=== PATIENT | female | born 1990 | race Two or more races ===

== ENCOUNTER 2022-11-06 12:54 | Inpatient (IN) | payer OTHER ==
[~2022-11-06] VITALS: Ht 165.1 cm; Wt 94.3 kg
[2022-11-06] MEDS ORDERED: MAG HYDROX/AL HYDROX/SIMETH 30 ML UDC PO PRN (15:00)
[2022-11-06] MEDS ORDERED: IBUPROFEN 200 MG TABLET PO PRN (15:00)
[2022-11-06] MEDS ORDERED: MAGNESIUM HYDROXIDE 30 ML UDC PO PRN (15:00)
[2022-11-06] MEDS ORDERED: ACETAMINOPHEN ES 500 MG TABLET PO PRN (15:00)
[2022-11-06] MEDS ORDERED: ZOLPIDEM TARTRATE 10 MG TABLET PO PRN (15:00)
[2022-11-06 16:01] VITALS: BP 130/79; TEMP 98.2; O2SAT 99
[2022-11-06] MEDS ORDERED: SEROQUEL 100 MG PO ONE (22:00)
[2022-11-07 07:00] VITALS: BP 120/95; TEMP 98; O2SAT 99
[2022-11-07] MEDS ORDERED: QUET200T PO (08:19)
[2022-11-07 16:06] VITALS: BP 119/70; TEMP 97.9; O2SAT 99
[2022-11-07 20:00] VITALS: BP 150/86; TEMP 99.1; O2SAT 100
[2022-11-07] MEDS ORDERED: SEROQUEL 50 MG PO ONE (22:00)
[2022-11-08 07:30] VITALS: BP 130/81; TEMP 98.2; O2SAT 100
[2022-11-08 20:00] VITALS: BP 147/95; TEMP 97.8; O2SAT 100
[2022-11-09] MEDS: LORAZEPAM 1 MG TABLET FOR AGITATION PO PRN ×2 (01:02→22:52)
[2022-11-09 16:00] VITALS: BP 139/93; TEMP 99.3; O2SAT 99
[2022-11-10 08:00] VITALS: BP 147/89; TEMP 98.4; O2SAT 99
[2022-11-10 10:00] VITALS: BP 131/72; TEMP 99; O2SAT 93
[2022-11-10] MEDS: LORAZEPAM 1 MG TABLET FOR AGITATION PO PRN (22:35)
[2022-11-11 08:00] VITALS: BP 136/96; TEMP 98.3; O2SAT 99
[2022-11-11 16:00] VITALS: BP_SYST 136; BP_SYST 137; BP_DIAS 88; BP_DIAS 95; TEMP 98.1; TEMP 98.6; O2SAT 96; O2SAT 99
[2022-11-11 20:00] VITALS: BP 145/85; TEMP 98.6; O2SAT 100
[2022-11-11] MEDS: LORAZEPAM 1 MG TABLET FOR AGITATION PO PRN (23:45)
[2022-11-12 20:00] VITALS: BP 132/91; TEMP 98.2; O2SAT 99
[2022-11-12] MEDS: LORAZEPAM 1 MG TABLET FOR AGITATION PO PRN (23:00)
[2022-11-13 16:00] VITALS: BP 135/77; TEMP 98.1; O2SAT 100
[2022-11-13 20:00] VITALS: BP 129/82; TEMP 98; O2SAT 100
[2022-11-14 23:00] VITALS: BP 150/100; TEMP 98.2; O2SAT 100
[2022-11-15] MEDS ORDERED: LORAZEPAM 1 MG TABLET FOR AGITATION PO PRN (13:00)
[2022-11-16] MEDS: INVEST MED CVL-231-2002 PO SCH (10:00)
[2022-11-16 20:00] VITALS: BP 132/78; TEMP 98.6; O2SAT 98
[2022-11-17] MEDS: INVEST MED CVL-231-2002 PO SCH (10:04)
[2022-11-18 00:30] VITALS: BP 134/95; TEMP 98.8; O2SAT 98
[2022-11-18 00:39] VITALS: BP 134/95; TEMP 98.8; O2SAT 98
[2022-11-18] MEDS: INVEST MED CVL-231-2002 PO SCH (10:05)
[2022-11-18 16:00] VITALS: BP 144/101; TEMP 98.8; O2SAT 97
[2022-11-18] MEDS: ZOLPIDEM TARTRATE 10 MG TABLET PO PRN (23:22)
[2022-11-19 08:00] VITALS: BP 121/81; TEMP 98; O2SAT 99
[2022-11-19] MEDS: INVEST MED CVL-231-2002 PO SCH ×2 (09:59→10:46)
[2022-11-19] MEDS: ONDANSETRON 4 MG TAB.RAPDIS PO PRN (18:09)
[2022-11-19 20:00] VITALS: BP 136/85; TEMP 98.4; O2SAT 100
[2022-11-20] MEDS: INVEST MED CVL-231-2002 PO SCH (12:51)
[2022-11-20 20:00] VITALS: BP 135/94; TEMP 97.2; O2SAT 95
[2022-11-20 20:20] VITALS: BP 135/94; TEMP 97.2; O2SAT 92
[2022-11-20] MEDS: ZOLPIDEM TARTRATE 10 MG TABLET PO PRN (20:32)
[2022-11-21 08:00] VITALS: BP 118/73; TEMP 97.9; O2SAT 96
[2022-11-21] MEDS: INVEST MED CVL-231-2002 PO SCH (09:04)
[2022-11-21] MEDS: ONDANSETRON 4 MG TAB.RAPDIS PO PRN (09:11)
[2022-11-21 20:00] VITALS: BP 147/99; TEMP 98.2; O2SAT 98
[2022-11-22] MEDS: INVEST MED CVL-231-2002 PO SCH ×2 (10:39→13:02)
[2022-11-22] MEDS ORDERED: LORAZEPAM 1 MG TABLET FOR AGITATION PO PRN (13:00)
[2022-11-23] MEDS: INVEST MED CVL-231-2002 PO SCH (11:22)
[2022-11-23 23:00] VITALS: BP 146/90; TEMP 98.6; O2SAT 95
[2022-11-24] MEDS: ZOLPIDEM TARTRATE 10 MG TABLET PO PRN (01:30)
[2022-11-24] MEDS: INVEST MED CVL-231-2002 PO SCH (10:32)
[2022-11-25 09:12] VITALS: BP 128/74; TEMP 98; O2SAT 99
[2022-11-25] MEDS: INVEST MED CVL-231-2002 PO SCH (09:59)
[2022-11-25 22:56] VITALS: BP 130/85; TEMP 97.8; O2SAT 97
[2022-11-26] MEDS: INVEST MED CVL-231-2002 PO SCH (09:58)
[2022-11-27 07:30] VITALS: BP 127/64; TEMP 98.6; O2SAT 96
[2022-11-27] MEDS: INVEST MED CVL-231-2002 PO SCH (10:24)
[2022-11-27 16:00] VITALS: BP 143/95; TEMP 98.8; O2SAT 100
[2022-11-27 19:00] VITALS: BP 117/65; TEMP 97; O2SAT 92
[2022-11-28] MEDS: ZOLPIDEM TARTRATE 10 MG TABLET PO PRN (01:53)
[2022-11-28 08:20] VITALS: BP 137/79; TEMP 98.2; O2SAT 99
[2022-11-28] MEDS: INVEST MED CVL-231-2002 PO SCH (10:28)
[2022-11-28 20:00] VITALS: BP 137/87; TEMP 98.6; O2SAT 96
[2022-11-29] MEDS: INVEST MED CVL-231-2002 PO SCH (09:31)
[2022-11-29] MEDS ORDERED: LORAZEPAM 1 MG TABLET FOR AGITATION PO PRN (13:00)
[2022-11-29 20:00] VITALS: BP 120/73; TEMP 99.1; O2SAT 97
[2022-11-29] MEDS: ZOLPIDEM TARTRATE 10 MG TABLET PO PRN (21:12)
[2022-11-30] MEDS: INVEST MED CVL-231-2002 PO SCH (10:02)
[2022-11-30 16:00] VITALS: BP 132/83; TEMP 98.8; O2SAT 99
[2022-12-01] MEDS: INVEST MED CVL-231-2002 PO SCH (10:59)
[2022-12-01 22:30] VITALS: BP 130/74; TEMP 98; O2SAT 98
[2022-12-02] MEDS: INVEST MED CVL-231-2002 PO SCH (10:05)
[2022-12-02 16:00] VITALS: BP 115/98; TEMP 98.8; O2SAT 97
[2022-12-02 20:00] VITALS: BP 128/74; TEMP 97.6
[2022-12-03] MEDS: ZOLPIDEM TARTRATE 10 MG TABLET PO PRN (00:47)
[2022-12-03 07:00] VITALS: BP 120/79; TEMP 99; O2SAT 98
[2022-12-03] MEDS: INVEST MED CVL-231-2002 PO SCH (09:50)
[2022-12-04 07:00] VITALS: BP 115/79; TEMP 97.8; O2SAT 99
[2022-12-04] MEDS: INVEST MED CVL-231-2002 PO SCH (10:00)
[2022-12-04 16:00] VITALS: BP 117/76; TEMP 97.6; O2SAT 99
[2022-12-04 21:12] VITALS: BP 130/93; TEMP 98.6; O2SAT 98
[2022-12-05] MEDS: ZOLPIDEM TARTRATE 10 MG TABLET PO PRN (01:20)
[2022-12-05 07:00] VITALS: BP 129/88; TEMP 98.6; O2SAT 98
[2022-12-05] MEDS: INVEST MED CVL-231-2002 PO SCH (17:37)
[2022-12-05 20:00] VITALS: BP 158/81; TEMP 98.6; O2SAT 95
[2022-12-06] MEDS: INVEST MED CVL-231-2002 PO SCH (11:45)
[2022-12-06 20:00] VITALS: BP 132/89; TEMP 99.9; O2SAT 99
[2022-12-07 08:31] VITALS: BP 126/79; TEMP 98; O2SAT 100
[2022-12-07] MEDS: INVEST MED CVL-231-2002 PO SCH (10:04)
[2022-12-07] MEDS ORDERED: ZOLPIDEM TARTRATE 10 MG TABLET PO PRN (13:00)
[2022-12-07] MEDS ORDERED: LORAZEPAM 1 MG TABLET FOR AGITATION PO PRN (13:00)
[2022-12-08 08:00] VITALS: BP 121/75; TEMP 98.1; O2SAT 96
[2022-12-08] MEDS: INVEST MED CVL-231-2002 PO SCH (10:12)
[2022-12-08 16:00] VITALS: BP 138/90; TEMP 98.2; O2SAT 98
[2022-12-08 20:00] VITALS: BP 119/75; TEMP 98.6; O2SAT 98
[2022-12-09 09:04] VITALS: BP 119/80; TEMP 98.2; O2SAT 98
[2022-12-09] MEDS: INVEST MED CVL-231-2002 PO SCH (10:00)
[2022-12-09 20:00] VITALS: BP 130/96; TEMP 98.6; O2SAT 98
[2022-12-10] MEDS: INVEST MED CVL-231-2002 PO SCH (10:12)
[2022-12-10 20:00] VITALS: BP 125/80; TEMP 98.6; O2SAT 96
[2022-12-11 07:30] VITALS: BP 128/85; TEMP 98.1; O2SAT 98
[2022-12-11] MEDS: INVEST MED CVL-231-2002 PO SCH ×2 (10:19→10:38)
[2022-12-11 20:00] VITALS: BP 133/81; TEMP 98.5; O2SAT 97
[2022-12-12] MEDS: INVEST MED CVL-231-2002 PO SCH (09:25)
[2022-12-12 20:00] VITALS: BP 147/100; TEMP 98.1; O2SAT 98
[2022-12-12 21:00] VITALS: BP 126/46; TEMP 97.5; O2SAT 95
[2022-12-13 07:00] VITALS: BP 122/85; TEMP 98.4; O2SAT 97
[2022-12-13] MEDS: INVEST MED CVL-231-2002 PO SCH (09:35)
[2022-12-13] MEDS ORDERED: LORAZEPAM 1 MG TABLET FOR AGITATION PO PRN (13:00)
[2022-12-13] MEDS ORDERED: ZOLPIDEM TARTRATE 10 MG TABLET PO PRN (13:00)
[2022-12-13 20:00] VITALS: BP 130/73; TEMP 98.8; O2SAT 98
[2022-12-14 09:30] VITALS: BP 120/79; TEMP 98; O2SAT 99
[2022-12-14] MEDS: INVEST MED CVL-231-2002 PO SCH (09:51)
[2022-12-14 16:00] VITALS: BP 121/86; TEMP 98.2; O2SAT 99
[2022-12-14 20:00] VITALS: BP 122/85; TEMP 98; O2SAT 99
[2022-12-15] MEDS: INVEST MED CVL-231-2002 PO SCH (10:10)
[2022-12-16 07:00] VITALS: BP 121/85; TEMP 97.9; O2SAT 93
[2022-12-16] MEDS: INVEST MED CVL-231-2002 PO SCH (10:37)
[2022-12-16 16:00] VITALS: BP 131/84; TEMP 98.7; O2SAT 98
[2022-12-16 21:26] VITALS: BP 143/85; TEMP 99; O2SAT 90
[2022-12-17] MEDS: INVEST MED CVL-231-2002 PO SCH (09:36)
[2022-12-17 20:00] VITALS: BP 131/94; TEMP 97; TEMP 97.7; O2SAT 97
[2022-12-18 07:30] VITALS: BP 128/92; TEMP 98.4; O2SAT 100
[2022-12-18] MEDS: INVEST MED CVL-231-2002 PO SCH (10:17)
[2022-12-18 16:00] VITALS: BP 131/94; TEMP 98.6; O2SAT 99
[2022-12-18 20:58] VITALS: BP 148/88; TEMP 99.1; O2SAT 100
[2022-12-19] MEDS: INVEST MED CVL-231-2002 PO SCH (10:08)
[2022-12-19 16:08] VITALS: BP 130/67; TEMP 97.7; O2SAT 98
[2022-12-19 20:00] VITALS: BP 134/93; TEMP 97.4; O2SAT 100
[2022-12-20] MEDS: INVEST MED CVL-231-2002 PO SCH (09:50)
[2022-12-20] MEDS ORDERED: LORAZEPAM 1 MG TABLET FOR AGITATION PO PRN (13:00)
[2022-12-21] MEDS: INVEST MED CVL-231-2002 PO SCH (09:41)
[2022-12-21 10:55] VITALS: BP 133/84; TEMP 98.4; O2SAT 100
[2022-12-22 08:00] VITALS: BP 123/80; TEMP 98.6; O2SAT 96
[2022-12-22] MEDS: INVEST MED CVL-231-2002 PO SCH (10:02)
[2022-12-22 16:00] VITALS: BP 111/71; TEMP 98.6; O2SAT 96
[2022-12-23 08:32] VITALS: BP 122/82; TEMP 98; O2SAT 100
[2022-12-23] MEDS: INVEST MED CVL-231-2002 PO SCH (09:41)
[2022-12-23 20:00] VITALS: BP 110/78; TEMP 97.8; O2SAT 97
[2022-12-24] MEDS: INVEST MED CVL-231-2002 PO SCH (09:20)
[2022-12-24] MEDS: ZOLPIDEM TARTRATE 10 MG TABLET PO PRN (19:53)
[2022-12-24 20:00] VITALS: BP 131/74; TEMP 99.1; O2SAT 100
[2022-12-25] MEDS: INVEST MED CVL-231-2002 PO SCH (10:00)
[2022-12-25 20:34] VITALS: BP 142/91; TEMP 99.5; O2SAT 98
[2022-12-26] MEDS: ZOLPIDEM TARTRATE 10 MG TABLET PO PRN (00:56)
[2022-12-26 07:00] VITALS: BP 114/74; TEMP 99.1; O2SAT 100
[2022-12-26] MEDS: INVEST MED CVL-231-2002 PO SCH (09:58)
[2022-12-26 21:00] VITALS: BP 137/88; TEMP 98.8; O2SAT 99
[2022-12-27 08:00] VITALS: BP 127/86; TEMP 99.1; O2SAT 98
[2022-12-27] MEDS: INVEST MED CVL-231-2002 PO SCH (09:54)
[2022-12-27] MEDS ORDERED: LORAZEPAM 1 MG TABLET FOR AGITATION PO PRN (13:00)
[2022-12-27 20:00] VITALS: BP 140/80; TEMP 97.7; O2SAT 99
[2022-12-28] MEDS: ZOLPIDEM TARTRATE 10 MG TABLET PO PRN (00:20)
[2022-12-28 03:22] VITALS: BP 152/62; TEMP 97.9; O2SAT 91
[2022-12-28 07:00] VITALS: BP 128/79; TEMP 99.5; O2SAT 98
[2022-12-28] MEDS: INVEST MED CVL-231-2002 PO SCH (09:30)
[2022-12-28 21:00] VITALS: BP 129/68; TEMP 97.8; O2SAT 98
[2022-12-29] MEDS: ZOLPIDEM TARTRATE 10 MG TABLET PO PRN (00:30)
[2022-12-29] MEDS: INVEST MED CVL-231-2002 PO SCH (09:42)
[2022-12-30 00:30] VITALS: BP 127/83; TEMP 98.6; O2SAT 95
[2022-12-30] MEDS: ZOLPIDEM TARTRATE 10 MG TABLET PO PRN ×2 (01:42→23:33)
[2022-12-30 05:24] VITALS: BP 127/83; TEMP 97.9; O2SAT 98
[2022-12-30] MEDS: INVEST MED CVL-231-2002 PO SCH (11:05)
[2022-12-31 09:01] VITALS: BP 160/88; TEMP 99; O2SAT 100
[2022-12-31] MEDS: INVEST MED CVL-231-2002 PO SCH (09:27)
== END 2022-12-31 11:00 | disposition home or self-care (01) | DRG 951 ==
LOC: MED 14:34
PROVIDERS: ADMIT Psychiatry & Neurology Psychiatry; ATTEND Psychiatry & Neurology Psychiatry
DX: Z00.6 Encounter for examination for normal comparison and control in clinical research program (principal); F20.0 Paranoid schizophrenia; Z79.899 Other long term (current) drug therapy
CPT/HCPCS: G0378; Q0162